=== PATIENT | male | born 1950 | race Caucasian/White ===

== ENCOUNTER 2024-03-02 09:56 | Emergency (ER) | payer BC, MEDICARE ==
[2024-03-02 10:11] VITALS: TEMP 97.7
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
[2024-03-02 11:33] LABS: Appearance Clear (Clear); Bacteria None Seen /HPF (None Seen); Bilirubin Negative (Negative); Blood Negative (Negative); Epithelial Cells None Seen /HPF (None Seen); Glucose, Urine Negative (Negative); Hyaline Casts NONE SEEN /LPF (0-2); Ketones Negative (Negative); Leukocyte Esterase Trace (Negative); Nitrite Negative (Negative); Ph 6.5 (4.6-8.0); Protein,Urine Dip Negative (Negative); RBC 0-2 /HPF (0-5); WBC 0-2 /HPF (0-5)
[2024-03-02 11:45] LABS: Absolute Neutrophil Ct (ANC) 3.58 x10^3/uL (1.78-5.38); Basophil (Absolute #) 0.06 x10^3/uL (0.01-0.08); Eosinophil % 5.4 % (0.8-7.0); Eosinophil (Absolute #) 0.33 x10^3/uL (0.04-0.54); Hematocrit 45.7 % (40.1-51.0); Hemoglobin 15.4 g/dL (13.7-17.5); IMMATURE GRAN # 0.02 x10^3u/L (0.001-0.031); IMMATURE GRAN % 0.3 % (0.001-0.429); Lymphocyte (Absolute #) 1.33 x10^3/uL (1.32-3.57); Lymphocytes % 21.9 % (21.8-53.1); Mean Cell Volume 96.8 fL (79.0-92.2); Mean Corpuscular Hemoglobin 32.6 pg (25.7-32.2); Mean Corpuscular Hgb Concent. 33.7 g/dL (32.3-36.5); Mean Platelet Volume 9.3 fL (9.4-12.4); Monocyte (Absolute #) 0.76 x10^3/uL (0.30-0.82); Monocytes % 12.5 % (5.3-12.2); Neutrophil % 58.9 % (34.0-67.9); Platelet Count 249 x10^3/uL (163-337); Red Blood Count 4.72 x10^6/uL (4.63-6.08); Red Cell Distribution Width 12.5 % (11.6-14.4); White Blood Count 6.1 x10^3/uL (4.23-9.07)
[2024-03-02] MEDS ORDERED: Reglan 10 MG/2 ML ONE (11:49)
[2024-03-02] MEDS ORDERED: Hydromorphone 1 mg/ml Injection ONE (11:49)
[2024-03-02] MEDS: Reglan 10 MG/2 ML IV ONE (11:50)
[2024-03-02] MEDS: Hydromorphone 1 mg/ml Injection IV ONE (11:50)
[2024-03-02 11:59] LABS: ALBUMIN 4.1 g/dL (3.5-5.0); ANION GAP 12.2 MEQ/L (5-15); BILIRUBIN,TOTAL 0.7 mg/dL (0.2-1.3); Calcium 9.2 mg/dL (8.4-10.2); Creatinine 1 0.96 mg/dL (0.66-1.25); Potassium 4.8 mmol/L (3.5-5.1); Total Protein 6.6 g/dL (6.3-8.2)
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
[2024-03-02 14:38] VITALS: BP 152/83
[2024-03-02 15:04] VITALS: O2SAT 98
[2024-03-02 15:19] VITALS: PULSE 81; RESP 17
== END 2024-03-02 15:19 | disposition home or self-care (01) ==
LOC: ED 09:56
DX: R07.9 Chest pain, unspecified (principal); V49.49XD Driver injured in collision with other motor vehicles in traffic accident, subsequent encounter
CPT/HCPCS: 36415; 71260; 74177; 80053; 81001; 83690; 85025; 96374; 96375; 99284; J1171